=== PATIENT | male | born 1960 | race Caucasian/White ===

== ENCOUNTER 2020-12-27 11:06 | Emergency (ER) | payer OTHER ==
[~2020-12-27] VITALS: Ht 177.8 cm; Wt 80.0 kg
[2020-12-27 11:09] VITALS: BP 142/80
[2020-12-27] MEDS ORDERED: IV NORMAL SALINE 1,000ML 1,000 ML IV SCH (11:30)
[2020-12-27] MEDS ORDERED: KETOROLAC 15 MG/ML VIAL. IVP ONE (11:30)
[2020-12-27 12:09] LABS: BASO % 0 % (0-3); EOS # 0.2 x10^3/uL (0.0-0.7); EOS % 3 % (0-3); HEMATOCRIT 48.2 % (39.0-53.0); HEMOGLOBIN 16.2 g/dL (13.0-17.5); LYMPH # 1.5 x10^3/uL (1.0-4.8); LYMPH % 23 % (24-48); MEAN CORPUSCULAR HEMOGLOBIN 29 pg (25-35); MEAN CORPUSCULAR HGB CONC 34 g/dL (31-37); MEAN CORPUSCULAR VOLUME 85 fL (79-100); MONO # 0.9 x10^3/uL (0.0-1.1); MONO % 13 % (0-9); NEUT % 61 % (31-73); PLATELET COUNT 174 x10^3/uL (140-400); RED BLOOD COUNT 5.64 x10^6/uL (4.30-5.70); RED CELL DISTRIBUTION WIDTH 13.5 % (11.5-14.5); WHITE BLOOD COUNT 6.6 x10^3/uL (4.0-11.0)
--- NOTE | 2020-12-27 12:15 | RAD ---
EXAM: Abdomen and pelvis CT without intravenous contrast. HISTORY: Pain. Lithotripsy. TECHNIQUE: Computed tomographic images of the abdomen and pelvis were obtained without contrast. Mult iplanar reformatting was performed. *One or more of the following individualized dose reduction techniques were utilized for this examina tion: 1. Automated exposure control. 2. Adjustment of the mA and/or kV according to patient size. 3. Use of iterative reconstruction technique. COMPARISON: None. FINDINGS: Evaluation of the lower thorax demonstrates right lower lobe atelectasis and pleural parenc hymal scarring with associated calcification or surgical anastomosis. There is a 4 mm nodule within t he posterior lateral left lower lobe. There is no pleural effusion. There is no pneumothorax. No hepa tic lesion is seen on this noncontrast exam. There is a gallstone. The pancreas is unremarkable. Ther e is a 1.1 cm hypodense lesion within the spleen, difficult to assess in the absence of contrast. The adrenal glands are unremarkable. There is no evidence of bowel obstruction. There is colonic diverticulosis. There is no evidence of d iverticulitis. There is a 1 mm nonobstructing stone within the mid zone of the left kidney. There is a 4 mm nonobstructing stone within the lower pole of the right kidney. There is no hydronephrosis or ureteral stone. There are small hypodense lesions within both kidneys, likely worsening cysts. These are difficult to characterize in the absence of contrast. There is a tiny amount of wall calcificatio n or milk of calcium within the 1.2 cm cyst within the posterior upper mid zone of the left kidney. There are surgical clips within the right retroperitoneum. 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 The re is ventral abdominal wall mesh due to prior hernia repair. There are bilateral inguinal clips. The re is a small left inguinal hernia containing fat and a portion of the wall of the proximal sigmoid c olon. There is no evidence of bowel incarceration. No pathologically enlarged lymph node is seen. The re is no suspicious osseous lesion. There is a prominent Schmorl's node within the superior endplate of S1. There is internal fixation of the right femur, partially included on the [id number]. IMPRESSION: 1. Nonobstructing bilateral renal stones. 2. Multiple small hypodense lesions within both kidneys, the attenuation which favors cysts. These ar e difficult to characterize in the absence of intravenous contrast. Renal sonography can be performed to exclude a complex cystic or solid lesion. 3. Colonic diverticulosis. 4. Small left internal hernia containing fat and a portion of the wall of the proximal sigmoid colon. Superimposed on findings can hernia repair. 5. 4 mm nodule within the left lower lobe. Follow-up can be performed with a chest CT in one year if there are risk factors for pulmonary neoplasm. 6. Cholelithiasis. Electronically signed by: Cathryn Pack MD (12/27/2020 12:12 PM) [id number]
[2020-12-27 12:16] LABS: CALCIUM 8.7 mg/dL (8.5-10.1); CREATININE 1.5 mg/dL (0.7-1.3); GFR 47.6; POTASSIUM 4.8 mmol/L (3.5-5.1)
[2020-12-27 12:59] LABS: BILIRUBIN,URINE NEG (NEG); CLARITY,URINE CLEAR; COLOR,URINE YELLOW; GLUCOSE,URINE 500 mg/dL (NEG); NITRITE,URINE NEG (NEG); UROBILINOGEN,URINE 0.2 mg/dL (0.2 mg/dL)
[2020-12-27 13:00] LABS: BACTERIA,URINE 0 /HPF (0-FEW); HYALINE CASTS, URINE MOD /HPF; SQUAMOUS EPITHELIAL CELL,UR FEW /LPF
[2020-12-27] MEDS ORDERED: KETOROLAC 60 MG/2 ML VIAL. IM ONE (13:00)
[2020-12-27] MEDS ORDERED: HYDR-2155 PO (13:47)
--- NOTE | 2020-12-27 13:48 | PHYS DOC ---
Past History Past Medical History: Cancer, Hypertension, Other Additional Past Medical Histor: tachycardia Past Surgical History: Other Additional Past Surgical Histo: testicle removed due to cancer, lung surgery due to cancer, cyst from liver Alcohol Use: None General Adult EDM: Chief Complaint: FLANK PAIN HPI: HPI: Patient is a [age] year old [sex] who presents with [] Review of Systems: Review of Systems: Constitutional: Denies fever or chills Eyes: Denies change in visual acuity HENT: Denies nasal congestion or sore throat Respiratory: Denies cough or shortness of breath Cardiovascular: Denies chest pain or edema GI: Denies abdominal pain, nausea, vomiting, bloody stools or diarrhea : Denies dysuria Musculoskeletal: Denies back pain or joint pain Integument: Denies rash Neurologic: Denies headache, focal weakness or sensory changes Endocrine: Denies polyuria or polydipsia Lymphatic: Denies swollen glands Psychiatric: Denies depression or anxiety Current Medications: Current Meds: Current Medications Medications (Trade) Dose Ordered Sig/[facility] Start Time Stop Time Status Last Admin Dose Admin Ketorolac Tromethamine (Toradol 15mg Vial) 15 mg 1X ONCE 12/27/20 11:30 12/27/20 11:31 Cancel Ketorolac Tromethamine (Toradol Im) 60 mg 1X ONCE 12/27/20 13:00 12/27/20 13:03 DC 12/27/20 13:07 60 MG Sodium Chloride 1,000 ml @ 1,000 mls/hr Q1H 12/27/20 11:30 12/27/20 13:03 DC Allergies: Allergies: Allergies Coded Allergies Type Severity Reaction Last Updated Verified No Known Drug Allergies 12/27/20 No Physical Exam: PE: Constitutional: Well developed, well nourished, no acute distress, non-toxic appearance. HENT: Normocephalic, atraumatic, Eyes: EOMI, conjunctiva normal, no discharge. Neck: Normal range of motion, supple, Cardiovascular: S1/2 present, regular rhythm Lungs & Thorax: Speaking in full sentences, bilateral equal chest rise, no tachypnea or increased work of breathing Abdomen: soft, no tenderness, Skin: Warm, dry, no erythema, no rash. [] Back: No tenderness, no CVA tenderness. [] Extremities: No tenderness, no cyanosis, no lower extremity edema Neurologic: Alert and oriented X 3, normal motor function, normal sensory function, no focal deficits noted. [] Psychologic: Affect normal, judgement normal, mood normal. [] Current Patient Data: Labs: Laboratory Tests Test 12/27/20 11:57 12/27/20 12:01 White Blood Count 6.6 x10^3/uL (4.0-11.0) Red Blood Count 5.64 x10^6/uL (4.30-5.70) Hemoglobin 16.2 g/dL (13.0-17.5) Hematocrit 48.2 % (39.0-53.0) Mean Corpuscular Volume 85 fL (79-100) Mean Corpuscular Hemoglobin 29 pg (25-35) Mean Corpuscular Hemoglobin Concent 34 g/dL (31-37) Red Cell Distribution Width 13.5 % (11.5-14.5) Platelet Count 174 x10^3/uL (140-400) Neutrophils (%) (Auto) 61 % (31-73) Lymphocytes (%) (Auto) 23 % (24-48) L Monocytes (%) (Auto) 13 % (0-9) H Eosinophils (%) (Auto) 3 % (0-3) Basophils (%) (Auto) 0 % (0-3) Neutrophils # (Auto) 4.0 x10^3uL (1.8-7.7) Lymphocytes # (Auto) 1.5 x10^3/uL (1.0-4.8) Monocytes # (Auto) 0.9 x10^3/uL (0.0-1.1) Eosinophils # (Auto) 0.2 x10^3/uL (0.0-0.7) Basophils # (Auto) 0.0 x10^3/uL (0.0-0.2) Sodium Level 135 mmol/L (136-145) L Potassium Level 4.8 mmol/L (3.5-5.1) Chloride Level 98 mmol/L (98-107) Carbon Dioxide Level 28 mmol/L (21-32) Anion Gap 9 (6-14) Blood Urea Nitrogen 35 mg/dL (8-26) H Creatinine 1.5 mg/dL (0.7-1.3) H Estimated GFR (Cockcroft-Gault) 47.6 Glucose Level 282 mg/dL (70-99) H Calcium Level 8.7 mg/dL (8.5-10.1) Urine Collection Type Unknown Urine Color Yellow Urine Clarity Clear Urine pH 5.0 Urine Specific [place] >=1.030 Urine Protein 30 mg/dl (NEG-TRACE) Urine Glucose (UA) 500 mg/dL (NEG) Urine Ketones (Stick) Neg mg/dL (NEG) Urine Blood Neg (NEG) Urine Nitrite Neg (NEG) Urine Bilirubin Neg (NEG) Urine Urobilinogen Dipstick 0.2 mg/dL (0.2 mg/dL) Urine Leukocyte Esterase Neg (NEG) Urine RBC 1-2 /HPF (0-2) Urine WBC 1-4 /HPF (0-4) Urine Squamous Epithelial Cells Few /LPF Urine Bacteria 0 /HPF (0-FEW) Urine Hyaline Casts Mod /HPF Urine Mucus Marked /LPF Vital Signs: Vital Signs Date Time Temp Pulse Resp B/P (MAP) Pulse Ox O2 Delivery O2 Flow Rate FiO2 12/27/20 11:09 97.0 83 16 142/80 (100) 97 Room Air EKG: EKG: [] Radiology/Procedures: Radiology/Procedures: [] Heart Score: Risk Factors: Risk Factors: DM, Current or recent (<one month) smoker, HTN, HLP, family history of CAD, obesity. Risk Scores: Score 0 - 3: 2.5% MACE over next 6 weeks - Discharge Home Score 4 - 6: 20.3% MACE over next 6 weeks - Admit for Clinical Observation Score 7 - 10: 72.7% MACE over next 6 weeks - Early Invasive Strategies Course & Med Decision Making: Course & Med Decision Making Pertinent Labs and Imaging studies reviewed. (See chart for details) Will discharge home with strict ED return precautions were given for []. Encouraged urgent outpatient follow-up with PMD and nephrology. Life- threatening processes were considered but are low suspicion at this time, given history, physical exam and ED workup. Pt was educated on all prescription medications and adverse effects. All patient's questions were answered and pt was stable at time of discharge. Life/limb-threatening differential includes but is not limited to, aortic dissection/aneurysm, cauda equina syndrome, transverse myelitis, spinal cord/epidural compression syndromes, discitis, spinal stenosis, epidural abscess or hematoma, osteomyelitis, disc herniation, surgical abdomen, stable or unstable fracture, renal/ureteral colic, sepsis, meningitis, musculoskeletal injury, traumatic injury, intraabdominal/retroperitoneal or pelvic bleeding. I spoken with the patient and her caregivers. I explained the patient's condition, diagnoses and treatment plan based on the information available to me at this time. I have answered the patient and her caregiver's questions and addressed any concerns. The patient and her caregivers have a good understanding of patient's diagnosis, condition and treatment plan as can be expected at this point. Vital signs have been stable. Patient's condition is stable and appropriate for discharge from the emergency department. Patient will pursue further outpatient evaluation with primary care physician or other designated or consulting physician as outlined in the discharge instructions. The patient and/or caregivers are agreeable to this plan of care and follow-up instructions have been explained in detail. The patient and/or caregivers have received these instructions in written form and have expressed an understanding of the discharge instructions. The patient and/or caregivers are aware that any significant change of condition or worsening of symptoms should prompt immediate return to this or the closest emergency department or call to 1Lili Soto Disclaimer: Charles Disclaimer: This electronic medical record was generated, in whole or in part, using a voice recognition dictation system. Departure Departure: Impression: Primary Impression: Left low back pain Additional Impression: Renal insufficiency Disposition: 01 DC HOME SELF CARE/HOMELESS Condition: STABLE Referrals: PCP,NO (PCP) FOLLOW UP WITH FAMILY MEDICINE: [facility], [place] [address], [facility] Instructions: Acute Kidney Injury, Back Pain, Adult, Kidney Stones Additional Instructions: FOLLOW UP WITH NEPHROLOGY: [facility] Address: [address] [place] [address] [address]jinder[address] [place] [id number] EMERGENCY DEPARTMENT GENERAL DISCHARGE INSTRUCTIONS Thank you for coming to [facility] (ED) today and trusting us with you care. We trust that you had a positivie experience in our Emergency Department. If you wish to speak to the department management, you may call the director at [phone]. YOUR FOLLOW UP INSTRUCTIONS ARE FOLLOWS: 1. Do you have a private Doctor? If you do not have a private doctor, please ask for a resource list of physicians or clinics that may be able to assist you with follow up care. 2. The Emergency Physician has interpreted your x-rays. The X-Ray specialist will also review them. If there is a change in the findings, you will be notified in 48 hours when at all possible. 3. A lab test or culture has been done, your results will be reviewed and you will be notified if you need a change in treatment. ADDITIONAL INSTRUCTIONS AND INFORMATION: 1. Your care today has been supervised by a physician who is specially trained in emergency care. Many problems require more than one evaluation for a complete diagnosis and treatment. We recommend that you schedule your follow up appointment as recommended to ensure complete treatment of you illness or injury. If you are unable to obtain follow up care and continue to have a problem, or if your condition worsens, we recommend that you return to the ED. 2. We are not able to safely determine your condition over the phone nor are we able to give sound medical advice over the phone. For these safety reasons, if you call for medical advice we will ask you to come to the ED for further evaluation. 3. If you have any questions regarding these discharge instructions please call the ED at [phone]. SAFETY INFORMATION: In the interest of safety, wellness, and injury prevention; we encourage you to wear your sealbelt, if you smoke; quite smoking, and we encourage family to use a protective helmet for bicycling and other sporting events that present an increased risk for head injury. IF YOUR SYMPTOMS WORSEN OR NEW SYMPTOMS DEVELOP, OR YOU HAVE CONCERNS ABOUT YOUR CONDITION; OR IF YOUR CONDITION WORSENS WHILE YOU ARE WAITING FOR YOUR FOLLOW UP APPOINTMENT; EITHER CONTACT YOUR PRIMARY CARE DOCTOR, THE PHYSICIAN WHOSE NAME AND NUMBER YOU WERE GIVEN, OR RETURN TO THE ED IMMEDIATELY. Scripts Hydrocodone Bit/Acetaminophen (HYDROCODONE-APAP 5-325 ) 1 Each Tablet 1 TAB PO PRN Q6HRS PRN for PAIN for 2 Days, #8 TAB 0 Refills Prov: AGUSTO OLMSTEAD DO 12/27/20 AGUSTO OLMSTEAD DO Dec 27, 2020 13:48
== END 2020-12-27 13:56 | disposition home or self-care (01) ==
LOC: ER 11:06
DX: M54.5 Low back pain (principal); N28.9 Disorder of kidney and ureter, unspecified; I10 Essential (primary) hypertension; Z85.9 Personal history of malignant neoplasm, unspecified; Z98.890 Other specified postprocedural states
CPT/HCPCS: 36415; 74176; 80048; 81001; 85025; 96372; 99284; J1885